=== PATIENT | female | born 1950 | race Caucasian/White ===

== ENCOUNTER 2023-03-07 11:35 | Emergency (ER) | payer MEDICARE, OTHER, SELFPAY ==
[2023-03-07] VITALS (14 sets, daily range): BP systolic 135–174; BP diastolic 80–93; PULSE 59–70; RESP 7–19; TEMP 36.5–36.7; O2SAT 95–98; BMI 26.2
--- NOTE | 2023-03-07 12:04 | ECG_ITS ---
[facility] Test Date: 2023-03-07 Pat Name: NIRAV RAI Department: Room: - Gender: Female Direct Support Professional: : 1950 Requested By: 1030 Order Number: [id number] Reading MD: BUFFY FLORES Measurements Intervals [place] Rate: 62 P: 26 MA: 212 QRS: -41 QRSD: 146 T: 102 QT: 482 QTc: 487 Interpretive Statements 1100 Sinus rhythm 2231 First degree AV block 2550 Left bundle branch block 7200 Abnormal left axis deviation 9150 abnormal ECG No previous ECG available for comparison Electronically Signed On 03-08-2023 6:53:47 EDT by BUFFY FLORES
--- NOTE | 2023-03-07 12:56 | ED.CHESTPAI1 ---
HPI - Chest Pain General Chief Complaint: Chest Pain Stated Complaint: CHEST PAIN Time Seen by Provider: 03/07/23 11:51 Source: patient Mode of arrival: ambulance History of Present Illness HPI narrative: 72-year-old female presents for chest pain which is now resolved. She got a call from the school counselor where her granddaughter goes to school and she was told that her granddaughter was feeling suicidal. She developed pain in the left side of her chest which resolved on its own and she has not had recurrence. It lasted a few minutes. She feels perfectly normal now, has no symptoms. This happened just before coming into the emergency department, about an hour before arrival. Related Data Allergies Allergy/AdvReac Type Severity Reaction Status Date / Time No Known Drug Allergies Allergy Verified 03/07/23 11:38 Review of Systems ROS Narrative A ten point review of systems is negative except as noted above. Exam Narrative Exam Narrative: Nurses note and vital signs reviewed and patient is not hypoxic. General: The patient appears well and in no apparent distress. Patient is resting comfortably on cart. Skin: Warm, dry, no pallor noted. There is no rash noted. Head: Normocephalic, atraumatic Eye: Normal conjunctiva, no drainage Ears, Nose, Mouth, and Throat: oral mucosa is moist. Nares patent. Cardiovascular: Regular Rate and Rhythm Respiratory: Patient is in no distress, no accessory muscle use, lungs are clear to auscultation, no wheezing, rales or rhonchi Back: non-tender GI: soft and nontender Musculoskeletal: The patient has no evidence of calf tenderness, no pitting edema, symmetrical pulses noted bilaterally Neurological: A&O, normal speech Psychiatric: Cooperative Constitutional Vital Signs, click to edit/add: Last Vital Signs Temp 97.7 F 03/07/23 11:38 Pulse 59 L 03/07/23 12:30 Resp 11 L 03/07/23 12:30 BP 141/88 03/07/23 12:30 Pulse Ox 97 03/07/23 12:30 O2 Del Method Room Air 03/07/23 11:38 Course Vital Signs Vital signs: Vital Signs Blood Pressure 140/80 03/07/23 11:31 Temperature 97.7 F 03/07/23 11:38 Pulse Rate 59 L 03/07/23 12:30 Respiratory Rate 11 L 03/07/23 12:30 Blood Pressure 141/88 03/07/23 12:30 Pulse Oximetry 97 03/07/23 12:30 Oxygen Delivery Method Room Air 03/07/23 11:38 MDM - Chest Pain MDM Narrative Medical decision making narrative: the patient had pain in her chest for a few minutes and resolved. It has not recurred and she was observed here. EKG on my interpretation shows no acute findings. She is asymptomatic and my clinical impressions that her symptom was due to anxiety. I've no clinical suspicion of acute coronary syndrome. Treatment diagnosis and follow-up were discussed with the patient. Differential Diagnosis Differential diagnosis: Likely stable angina, atypical chest pain, st elevation myocardial infarction and other (anxiety) ECG Data Attestation: I personally reviewed and interpreted this ECG as follows: (EKG on my interpretation shows sinus rhythm with first-degree block and no acute changes. Left bundle branch block also present and her heart rate is 62.) Discharge Plan Discharge Chief Complaint: Chest Pain Clinical Impression: Chest pain Patient Disposition: Home, Self-Care Time of Disposition Decision: 12:54 Condition: Good Mode of Transportation: Private Vehicle Instructions: Chest Pain (ED), Panic Attack (ED) Stand Alone Forms: Portal Instructions Referrals: Physician,Non-Staff, MD [Primary Care Provider] - 1 week
[2023-03-07 20:58] LABS: Glucometer 90 mg/dL (74-106)
== END 2023-03-07 13:32 | disposition home or self-care (01) ==
PROVIDERS: Emergency Provider Emergency Medicine
DX: R07.9 Chest pain, unspecified (principal)
CPT/HCPCS: 36415; 93005; 99283

== ENCOUNTER 2023-03-07 20:57 | Emergency (ER) | payer MEDICARE, OTHER, SELFPAY ==
[2023-03-07] VITALS (39 sets, daily range): BP systolic 117–176; BP diastolic 68–105; PULSE 60–90; RESP 6–22; TEMP 37.1; O2SAT 96–100; BMI 24.6
--- NOTE | 2023-03-07 21:04 | XR_ITS ---
[address] [address] Patient Name: NIRAV RAI MRN: [id number] date: 1950 Sex: F Assigned Patient Location: ER Current Patient Location: ER Accession/Order Number: [id number] Exam Date: 03/07/2023 21:23 Report Date: 03/07/2023 21:48 At the request of: MARLA KEEN Procedure: XR chest 1V Exam: Radiographs: XR chest 1V Reason for exam: chest pain Comparison: Chest x-ray dated 08/16/2022 XR/XR chest 1V IMPRESSION: Unremarkable chest x-ray. Electronically authenticated by: AYLIN REYNOLDS Date: 03/07/2023 21:48
--- NOTE | 2023-03-07 21:06 | ED.CHESTPAI1 ---
Documented by User: Jose Ventura MD 03/09/23 06:55 HPI - Chest Pain General Chief Complaint: Chest Pain Stated Complaint: CHEST PAIN Time Seen by Provider: 03/07/23 21:02 Source: patient Mode of arrival: Wheelchair History of Present Illness HPI narrative: patient is poor historian. Past history of CAD. complains of left neck and shoulder pain. Feels short of breath. No nausea or abdominal pain patient has been in the ER most of the day with her grand daughter who is being treated for depression and arrangements in place for in patient psychiatric treatment. Patient was seen earlier today for chest pain and was discharged back to the room with her granddaughter. Now presents with above pain. additional history obtained later from patient. Past cardiac stents x 3. Last stent placed 01/2023. MD complaint: Reports chest pain Related Data Home Medications Medication Instructions Recorded Confirmed aspirin 81 mg tablet,delayed 81 mg PO DAILY 03/07/23 03/07/23 release atorvastatin 80 mg tablet 80 mg PO DAILY 03/07/23 03/07/23 citalopram 20 mg tablet 20 mg PO DAILY 03/07/23 03/07/23 clopidogrel 75 mg tablet 75 mg PO DAILY 03/07/23 03/07/23 folic acid 1 mg tablet 1 mg PO DAILY 03/07/23 03/07/23 lacosamide 100 mg tablet 100 mg PO Q12H 03/07/23 03/07/23 levetiracetam 500 mg tablet 500 mg PO Q12H 03/07/23 03/07/23 levothyroxine 125 mcg tablet 125 mcg PO DAILY 03/07/23 03/07/23 losartan 50 mg tablet 50 mg PO DAILY 03/07/23 03/07/23 mecobalamin (vitamin B12) 1,000 1,000 mcg PO DAILY 03/07/23 03/07/23 mcg disintegrating tablet,sublingual metoprolol succinate 25 mg 25 mg PO DAILY 03/07/23 03/07/23 tablet,extended release 24 hr nitroglycerin 0.4 mg sublingual 0.4 mg sublingual Q5M PRN chest 03/07/23 03/07/23 tablet pain pantoprazole 40 mg tablet,delayed 40 mg PO DAILY 03/07/23 03/07/23 release Allergies Allergy/AdvReac Type Severity Reaction Status Date / Time No Known Drug Allergies Allergy Verified 03/07/23 11:38 Review of Systems ROS Status of ROS 10 or more systems reviewed and unremarkable except as noted in history and below [facility] Medical History (Updated 03/08/23 @ 15:21 by Ella Caputo) Myocardial infarction ?I21.9 - Acute myocardial infarction, unspecified (ICD-10) Exam Constitutional Vital Signs, click to edit/add: Last Vital Signs Temp 97.7 F 03/08/23 19:18 Pulse 70 03/08/23 19:18 Resp 16 03/08/23 19:18 BP 148/78 H 03/08/23 19:18 Pulse Ox 98 03/08/23 19:18 O2 Del Method Room Air 03/08/23 18:10 Common normals: no apparent distress (mild distress), oriented x3 and alert Eye Common normals: EOMs intact bilaterally and conjunctivae normal Respiratory Common normals: normal respiratory effort, no retractions, no use of accessory muscles and clear to auscultation bilaterally Cardio Common normals: regular rate, regular rhythm, S1 normal heart sound and S2 normal heart sound GI Common normals: Normal to inspection, nondistended, normoactive bowel sounds present, soft to palpation and non-tender Extremity Common normals: normal to inspection Neuro Common normals: oriented x3, CN's II-XII intact bilaterally, moves all extremities, no focal motor deficits and no sensory deficits noted Psych Appearance: grossly normal Course Vital Signs Vital signs: Vital Signs Blood Pressure 171/94 H 03/07/23 20:55 Temperature 97.7 F 03/08/23 19:18 Pulse Rate 70 03/08/23 19:18 Respiratory Rate 16 03/08/23 19:18 Blood Pressure 148/78 H 03/08/23 19:18 Pulse Oximetry 98 03/08/23 19:18 Oxygen Delivery Method Room Air 03/08/23 18:10 MDM - Chest Pain MDM Narrative Medical decision making narrative: significant past history for CAD. Presents complaining of chest pain with radiation to her left neck and shoulder. Associated with dyspnea. d-dimer elevated but CTA neg for PE. EKG with old LBBB. cxray clear. Troponin elevated >500. Patient informed of the findings and need for transfer to cardiology. ordered placed for heparin Lab Data Labs: Lab Results 03/07/23 03/08/23 03/08/23 Range/Units 21:00 02:10 02:30 WBC 10.1 (4.0-11.0) 10^3/uL RBC 4.13 L (4.20-5.40) 10^6/uL Hgb 11.3 L (12.0-16.0) g/dL Hct 37.5 (36.0-48.0) % MCV 90.8 (81.0-99.0) fL MCH 27.4 (26.7-34.0) pg MCHC 30.1 (29.9-35.2) g/dL RDW 16.4 H (11.0-15.0) % Plt Count 304 (150-450) 10^3/uL MPV 10.1 (9.5-13.5) fL Neut % (Auto) 64.1 (43.0-75.0) % Lymph % (Auto) 26.4 (20.5-60.0) % [place] % (Auto) 6.9 (1.7-12.0) % Eos % (Auto) 1.8 (0.9-7.0) % Baso % (Auto) 0.6 (0.2-2.0) % Neut # (Auto) 6.5 (1.4-6.5) 10^3/uL Lymph # (Auto) 2.7 (1.2-3.8) 10^3/uL [place] # (Auto) 0.7 (0.3-0.8) 10^3/uL Eos # (Auto) 0.2 (0.0-0.7) 10^3/uL Baso # (Auto) 0.1 (0.0-0.1) 10^3/uL Abs Immat Gran (auto) 0.02 (0.00-0.03) 10^3/uL Imm/Tot Granulo (auto) 0.2 (0.0-0.5) % APTT 25.0 (22.3-36.2) sec PTT (Heparin Absorb) (39.5-54.2) sec D-Dimer 1.17 H* (<=0.59) mg/L FEU Sodium 139 (136-145) mmol/L Potassium 3.6 (3.5-5.1) mmol/L Chloride 105 (98-107) mmol/L Carbon Dioxide 24.5 (21.0-32.0) mmol/L Anion Gap 13.1 BUN 17.0 (7.0-18.0) mg/dL Creatinine 0.97 (0.55-1.02) mg/dL Est GFR ( Amer) >60 (>=60) Est GFR (Non-Af Amer) 56 L (>=60) BUN/Creatinine Ratio 17.5 Glucose 94 (74-106) mg/dL Calcium 8.7 (8.5-10.1) mg/dL Total Creatine Kinase 48 (26-192) U/L CK-MB (CK-2) <0.50 (<=3.60) ng/mL Troponin I High Sens 568.4 H* 493.3 H* (4.0-51.3) pg/mL 03/08/23 03/08/23 03/08/23 Range/Units 06:04 12:06 15:33 WBC (4.0-11.0) 10^3/uL RBC (4.20-5.40) 10^6/uL Hgb (12.0-16.0) g/dL Hct (36.0-48.0) % MCV (81.0-99.0) fL MCH (26.7-34.0) pg MCHC (29.9-35.2) g/dL RDW (11.0-15.0) % Plt Count (150-450) 10^3/uL MPV (9.5-13.5) fL Neut % (Auto) (43.0-75.0) % Lymph % (Auto) (20.5-60.0) % [place] % (Auto) (1.7-12.0) % Eos % (Auto) (0.9-7.0) % Baso % (Auto) (0.2-2.0) % Neut # (Auto) (1.4-6.5) 10^3/uL Lymph # (Auto) (1.2-3.8) 10^3/uL [place] # (Auto) (0.3-0.8) 10^3/uL Eos # (Auto) (0.0-0.7) 10^3/uL Baso # (Auto) (0.0-0.1) 10^3/uL Abs Immat Gran (auto) (0.00-0.03) 10^3/uL Imm/Tot Granulo (auto) (0.0-0.5) % APTT (22.3-36.2) sec PTT (Heparin Absorb) 40.7 30.5 L* (39.5-54.2) sec D-Dimer (<=0.59) mg/L FEU Sodium (136-145) mmol/L Potassium (3.5-5.1) mmol/L Chloride (98-107) mmol/L Carbon Dioxide (21.0-32.0) mmol/L Anion Gap BUN (7.0-18.0) mg/dL Creatinine (0.55-1.02) mg/dL Est GFR ( Amer) (>=60) Est GFR (Non-Af Amer) (>=60) BUN/Creatinine Ratio Glucose (74-106) mg/dL Calcium (8.5-10.1) mg/dL Total Creatine Kinase (26-192) U/L CK-MB (CK-2) (<=3.60) ng/mL Troponin I High Sens 475.9 H* (4.0-51.3) pg/mL 03/08/23 Range/Units 17:53 WBC (4.0-11.0) 10^3/uL RBC (4.20-5.40) 10^6/uL Hgb (12.0-16.0) g/dL Hct (36.0-48.0) % MCV (81.0-99.0) fL MCH (26.7-34.0) pg MCHC (29.9-35.2) g/dL RDW (11.0-15.0) % Plt Count (150-450) 10^3/uL MPV (9.5-13.5) fL Neut % (Auto) (43.0-75.0) % Lymph % (Auto) (20.5-60.0) % [place] % (Auto) (1.7-12.0) % Eos % (Auto) (0.9-7.0) % Baso % (Auto) (0.2-2.0) % Neut # (Auto) (1.4-6.5) 10^3/uL Lymph # (Auto) (1.2-3.8) 10^3/uL [place] # (Auto) (0.3-0.8) 10^3/uL Eos # (Auto) (0.0-0.7) 10^3/uL Baso # (Auto) (0.0-0.1) 10^3/uL Abs Immat Gran (auto) (0.00-0.03) 10^3/uL Imm/Tot Granulo (auto) (0.0-0.5) % APTT (22.3-36.2) sec PTT (Heparin Absorb) 78.1 H* (39.5-54.2) sec D-Dimer (<=0.59) mg/L FEU Sodium (136-145) mmol/L Potassium (3.5-5.1) mmol/L Chloride (98-107) mmol/L Carbon Dioxide (21.0-32.0) mmol/L Anion Gap BUN (7.0-18.0) mg/dL Creatinine (0.55-1.02) mg/dL Est GFR ( Amer) (>=60) Est GFR (Non-Af Amer) (>=60) BUN/Creatinine Ratio Glucose (74-106) mg/dL Calcium (8.5-10.1) mg/dL Total Creatine Kinase (26-192) U/L CK-MB (CK-2) (<=3.60) ng/mL Troponin I High Sens (4.0-51.3) pg/mL Discharge Plan Discharge Chief Complaint: Chest Pain Clinical Impression: Non-ST elevation LA (NSTEMI) Patient Disposition: [facility] Time of Disposition Decision: 17:36 Discharge Location: [facility] Condition: Serious Mode of Transportation: EMS Discharge Date/Time: 03/08/23 19:41 Documented by User: Edmundo Whitney MD 03/08/23 17:36 HPI - Chest Pain General Chief Complaint: Chest Pain Stated Complaint: CHEST PAIN Time Seen by Provider: 03/07/23 21:02 Related Data Home Medications Medication Instructions Recorded Confirmed aspirin 81 mg tablet,delayed 81 mg PO DAILY 03/07/23 03/07/23 release atorvastatin 80 mg tablet 80 mg PO DAILY 03/07/23 03/07/23 citalopram 20 mg tablet 20 mg PO DAILY 03/07/23 03/07/23 clopidogrel 75 mg tablet 75 mg PO DAILY 03/07/23 03/07/23 folic acid 1 mg tablet 1 mg PO DAILY 03/07/23 03/07/23 lacosamide 100 mg tablet 100 mg PO Q12H 03/07/23 03/07/23 levetiracetam 500 mg tablet 500 mg PO Q12H 03/07/23 03/07/23 levothyroxine 125 mcg tablet 125 mcg PO DAILY 03/07/23 03/07/23 losartan 50 mg tablet 50 mg PO DAILY 03/07/23 03/07/23 mecobalamin (vitamin B12) 1,000 1,000 mcg PO DAILY 03/07/23 03/07/23 mcg disintegrating tablet,sublingual metoprolol succinate 25 mg 25 mg PO DAILY 03/07/23 03/07/23 tablet,extended release 24 hr nitroglycerin 0.4 mg sublingual 0.4 mg sublingual Q5M PRN chest 03/07/23 03/07/23 tablet pain pantoprazole 40 mg tablet,delayed 40 mg PO DAILY 03/07/23 03/07/23 release Allergies Allergy/AdvReac Type Severity Reaction Status Date / Time No Known Drug Allergies Allergy Verified 03/07/23 11:38 [facility] Medical History (Updated 03/08/23 @ 15:21 by Ella Caputo) Myocardial infarction ?I21.9 - Acute myocardial infarction, unspecified (ICD-10) Exam Constitutional Vital Signs, click to edit/add: Last Vital Signs Temp 97.7 F 03/08/23 19:18 Pulse 70 03/08/23 19:18 Resp 16 03/08/23 19:18 BP 148/78 H 03/08/23 19:18 Pulse Ox 98 03/08/23 19:18 O2 Del Method Room Air 03/08/23 18:10 Course Vital Signs Vital signs: Vital Signs Blood Pressure 171/94 H 03/07/23 20:55 Temperature 97.7 F 03/08/23 19:18 Pulse Rate 70 03/08/23 19:18 Respiratory Rate 16 03/08/23 19:18 Blood Pressure 148/78 H 03/08/23 19:18 Pulse Oximetry 98 03/08/23 19:18 Oxygen Delivery Method Room Air 03/08/23 18:10 MDM - Chest Pain MDM Narrative Medical decision making narrative: significant past history for CAD. Presents complaining of chest pain with radiation to her left neck and shoulder. Associated with dyspnea. d-dimer elevated but CTA neg for PE. EKG with old LBBB. cxray clear. Troponin elevated >500. Patient informed of the findings and need for transfer to cardiology. ordered placed for heparin Patient was under my care from 7:00 AM. Multiple calls were made to her preferred hospital but they have no beds and did not have any indication as to when that should be available. She initially refused to go out to any other other institution but it approximate 5:00 PM she said that she would be transferred to another cardiology center if necessary . serial troponins have stabilized. sHe developed severe abdominal pain in the right mid to right upper quadrant in the middle of the afternoon and CT was done of the abdomen. There is no acute findings noted. She has been on heparin.I spoke with the hospitalist in [place] he's accepted the case. I explained these findings and recommendations to the patient multiple times and one of her family members as well. Lab Data Labs: Lab Results 03/07/23 03/08/23 03/08/23 Range/Units 21:00 02:10 02:30 WBC 10.1 (4.0-11.0) 10^3/uL RBC 4.13 L (4.20-5.40) 10^6/uL Hgb 11.3 L (12.0-16.0) g/dL Hct 37.5 (36.0-48.0) % MCV 90.8 (81.0-99.0) fL MCH 27.4 (26.7-34.0) pg MCHC 30.1 (29.9-35.2) g/dL RDW 16.4 H (11.0-15.0) % Plt Count 304 (150-450) 10^3/uL MPV 10.1 (9.5-13.5) fL Neut % (Auto) 64.1 (43.0-75.0) % Lymph % (Auto) 26.4 (20.5-60.0) % [place] % (Auto) 6.9 (1.7-12.0) % Eos % (Auto) 1.8 (0.9-7.0) % Baso % (Auto) 0.6 (0.2-2.0) % Neut # (Auto) 6.5 (1.4-6.5) 10^3/uL Lymph # (Auto) 2.7 (1.2-3.8) 10^3/uL [place] # (Auto) 0.7 (0.3-0.8) 10^3/uL Eos # (Auto) 0.2 (0.0-0.7) 10^3/uL Baso # (Auto) 0.1 (0.0-0.1) 10^3/uL Abs Immat Gran (auto) 0.02 (0.00-0.03) 10^3/uL Imm/Tot Granulo (auto) 0.2 (0.0-0.5) % APTT 25.0 (22.3-36.2) sec PTT (Heparin Absorb) (39.5-54.2) sec D-Dimer 1.17 H* (<=0.59) mg/L FEU Sodium 139 (136-145) mmol/L Potassium 3.6 (3.5-5.1) mmol/L Chloride 105 (98-107) mmol/L Carbon Dioxide 24.5 (21.0-32.0) mmol/L Anion Gap 13.1 BUN 17.0 (7.0-18.0) mg/dL Creatinine 0.97 (0.55-1.02) mg/dL Est GFR ( Amer) >60 (>=60) Est GFR (Non-Af Amer) 56 L (>=60) BUN/Creatinine Ratio 17.5 Glucose 94 (74-106) mg/dL Calcium 8.7 (8.5-10.1) mg/dL Total Creatine Kinase 48 (26-192) U/L CK-MB (CK-2) <0.50 (<=3.60) ng/mL Troponin I High Sens 568.4 H* 493.3 H* (4.0-51.3) pg/mL 03/08/23 03/08/23 03/08/23 Range/Units 06:04 12:06 15:33 WBC (4.0-11.0) 10^3/uL RBC (4.20-5.40) 10^6/uL Hgb (12.0-16.0) g/dL Hct (36.0-48.0) % MCV (81.0-99.0) fL MCH (26.7-34.0) pg MCHC (29.9-35.2) g/dL RDW (11.0-15.0) % Plt Count (150-450) 10^3/uL MPV (9.5-13.5) fL Neut % (Auto) (43.0-75.0) % Lymph % (Auto) (20.5-60.0) % [place] % (Auto) (1.7-12.0) % Eos % (Auto) (0.9-7.0) % Baso % (Auto) (0.2-2.0) % Neut # (Auto) (1.4-6.5) 10^3/uL Lymph # (Auto) (1.2-3.8) 10^3/uL [place] # (Auto) (0.3-0.8) 10^3/uL Eos # (Auto) (0.0-0.7) 10^3/uL Baso # (Auto) (0.0-0.1) 10^3/uL Abs Immat Gran (auto) (0.00-0.03) 10^3/uL Imm/Tot Granulo (auto) (0.0-0.5) % APTT (22.3-36.2) sec PTT (Heparin Absorb) 40.7 30.5 L* (39.5-54.2) sec D-Dimer (<=0.59) mg/L FEU Sodium (136-145) mmol/L Potassium (3.5-5.1) mmol/L Chloride (98-107) mmol/L Carbon Dioxide (21.0-32.0) mmol/L Anion Gap BUN (7.0-18.0) mg/dL Creatinine (0.55-1.02) mg/dL Est GFR ( Amer) (>=60) Est GFR (Non-Af Amer) (>=60) BUN/Creatinine Ratio Glucose (74-106) mg/dL Calcium (8.5-10.1) mg/dL Total Creatine Kinase (26-192) U/L CK-MB (CK-2) (<=3.60) ng/mL Troponin I High Sens 475.9 H* (4.0-51.3) pg/mL 03/08/23 Range/Units 17:53 WBC (4.0-11.0) 10^3/uL RBC (4.20-5.40) 10^6/uL Hgb (12.0-16.0) g/dL Hct (36.0-48.0) % MCV (81.0-99.0) fL MCH (26.7-34.0) pg MCHC (29.9-35.2) g/dL RDW (11.0-15.0) % Plt Count (150-450) 10^3/uL MPV (9.5-13.5) fL Neut % (Auto) (43.0-75.0) % Lymph % (Auto) (20.5-60.0) % [place] % (Auto) (1.7-12.0) % Eos % (Auto) (0.9-7.0) % Baso % (Auto) (0.2-2.0) % Neut # (Auto) (1.4-6.5) 10^3/uL Lymph # (Auto) (1.2-3.8) 10^3/uL [place] # (Auto) (0.3-0.8) 10^3/uL Eos # (Auto) (0.0-0.7) 10^3/uL Baso # (Auto) (0.0-0.1) 10^3/uL Abs Immat Gran (auto) (0.00-0.03) 10^3/uL Imm/Tot Granulo (auto) (0.0-0.5) % APTT (22.3-36.2) sec PTT (Heparin Absorb) 78.1 H* (39.5-54.2) sec D-Dimer (<=0.59) mg/L FEU Sodium (136-145) mmol/L Potassium (3.5-5.1) mmol/L Chloride (98-107) mmol/L Carbon Dioxide (21.0-32.0) mmol/L Anion Gap BUN (7.0-18.0) mg/dL Creatinine (0.55-1.02) mg/dL Est GFR ( Amer) (>=60) Est GFR (Non-Af Amer) (>=60) BUN/Creatinine Ratio Glucose (74-106) mg/dL Calcium (8.5-10.1) mg/dL Total Creatine Kinase (26-192) U/L CK-MB (CK-2) (<=3.60) ng/mL Troponin I High Sens (4.0-51.3) pg/mL Discharge Plan Discharge Chief Complaint: Chest Pain Clinical Impression: Non-ST elevation LA (NSTEMI) Patient Disposition: [facility] Time of Disposition Decision: 17:36 Discharge Location: [facility] Condition: Serious Mode of Transportation: EMS Discharge Date/Time: 03/08/23 19:41
[2023-03-07] MEDS: NITROGLYCERIN 0.4 MG BOTTLE SL (21:10)
[2023-03-07 21:11] LABS: Basophils Absolute Auto 0.1 10^3/uL (0.0-0.1); Basophils Percent Auto 0.6 % (0.2-2.0); Eosinophils Absolute Auto 0.2 10^3/uL (0.0-0.7); Eosinophils Percent Auto 1.8 % (0.9-7.0); Hematocrit 37.5 % (36.0-48.0); Hemoglobin 11.3 g/dL (12.0-16.0); Immature Granulocytes Abs Auto 0.02 10^3/uL (0.00-0.03); Immature Granulocytes Pct Auto 0.2 % (0.0-0.5); Lymphocytes Absolute Auto 2.7 10^3/uL (1.2-3.8); Lymphocytes Percent Auto 26.4 % (20.5-60.0); Mean Corpuscular HGB Conc 30.1 g/dL (29.9-35.2); Mean Corpuscular Hemoglobin 27.4 pg (26.7-34.0); Mean Corpuscular Volume 90.8 fL (81.0-99.0); Mean Platelet Volume 10.1 fL (9.5-13.5); Monocytes Absolute Auto 0.7 10^3/uL (0.3-0.8); Monocytes Percent Auto 6.9 % (1.7-12.0); Neutrophils Absolute Auto 6.5 10^3/uL (1.4-6.5); Neutrophils Percent Auto 64.1 % (43.0-75.0); Platelet Count 304 10^3/uL (150-450); Red Blood Count 4.13 10^6/uL (4.20-5.40); Red Cell Distribution Width 16.4 % (11.0-15.0); White Blood Count 10.1 10^3/uL (4.0-11.0)
--- NOTE | 2023-03-07 21:15 | PC.NURSE ---
pt was here earlier today because patient was sitting with her granddaughter who is waiting on a room to a psych facility. patient developed left sided chest pain and was taken to a room.patient had chest pain an hour prior to bringing her granddaughter in and it had resolved but then came back when sitting with patient. pt had an ekg done and after calming down chest pain had resolved. no blood work was done earlier. patient was sitting in room with granddaughter and the constant observer at bedside alerted nurses that the patient was feeling unwell and dizzy. patient was taken back to a room. when back in room patient is c/o dizziness and feeling hot and sweaty. patient states that she has pain to the left side of her neck that goes down into her left shoulder that started 20 minutes prior to being brought back to a room. patient denies chest pain at this time. patient states she does feel sob. pt placed on 2 liters nasal cannula for comfort. 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
[2023-03-07 21:32] LABS: Anion Gap 13.1; BUN Creatinine Ratio 17.5; Calcium 8.7 mg/dL (8.5-10.1); Carbon Dioxide 24.5 mmol/L (21.0-32.0); Chloride 105 mmol/L (98-107); Estimated GFR (African America >60 (>=60); Estimated GFR (Non-African Ame 56 (>=60); Glucose 94 mg/dL (74-106); Potassium 3.6 mmol/L (3.5-5.1); Sodium 139 mmol/L (136-145)
[2023-03-07 21:33] LABS: D Dimer 1.17 mg/L FEU (<=0.59)
--- NOTE | 2023-03-07 21:34 | CT_ITS ---
[address] [address] Patient Name: NIRAV RAI MRN: [id number] date: 1950 Sex: F Assigned Patient Location: ER Current Patient Location: Accession/Order Number: [id number] Exam Date: 03/07/2023 21:48 Report Date: 03/07/2023 22:19 At the request of: MARLA KEEN Procedure: CT angio chest EXAM: CT pulmonary angiogram of the chest using 100 mL of IV iodinated contrast. 3-D imaging was performed. Dose reduction technique used: Automated exposure control and/or adjustment of the mA and/or kV according to patient size and/or use of iterative reconstruction technique. REASON FOR EXAM: elevated d dimer COMPARISON: None FINDINGS: No pulmonary emboli. No aortic dissection. No pneumothorax. No acute airspace opacities. No pleural effusion. No acute fractures. No concerning pulmonary nodules. No definite lymphadenopathy in the chest. Mucus plugging scattered in the lower lungs bilaterally. Coronary atherosclerotic calcifications. Cardiomegaly. Remainder unremarkable. CT/CT angio chest IMPRESSION: 1. No pulmonary embolism. 2. Mucus plugging scattered in the lower lungs bilaterally. Electronically authenticated by: AYLIN REYNOLDS Date: 03/07/2023 22:19
[2023-03-07 21:35] LABS: Troponin I High Sensitivity 568.4 pg/mL (4.0-51.3)
[2023-03-07] MEDS: MORPHINE SULFATE 4 MG/ML VIAL IV (21:35)
--- NOTE | 2023-03-07 23:03 | ECG_ITS ---
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
[2023-03-07] MEDS: HEPARIN SODIUM (PORCINE) 5,000 UNIT/ML VIAL 2500 UNIT IV (23:32)
[2023-03-07] MEDS: HEPARIN SODIUM,PORCINE/D5W 25,000 UNIT/500 ML IV.SOLN 15.12 UNIT IV (23:33)
[2023-03-08] VITALS (166 sets, daily range): BP systolic 120–191; BP diastolic 59–129; PULSE 56–97; RESP 8–22; TEMP 36.4–36.5; O2SAT 95–100
[2023-03-08] MEDS: ASPIRIN 81 MG TABLET.DR 324 MG PO (00:33)
[2023-03-08 03:02] LABS: Creatine Kinase 48 U/L (26-192); Creatine Kinase MB <0.50 ng/mL (<=3.60); Troponin I High Sensitivity 493.3 pg/mL (4.0-51.3)
[2023-03-08 06:34] LABS: PTT Heparin Monitor 40.7 sec (39.5-54.2)
[2023-03-08 12:28] LABS: PTT Heparin Monitor 30.5 sec (39.5-54.2)
[2023-03-08] MEDS: HEPARIN SODIUM (PORCINE) 5,000 UNIT/ML VIAL 2500 UNIT IV (12:46)
--- NOTE | 2023-03-08 13:58 | ECG_ITS ---
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
--- NOTE | 2023-03-08 13:59 | PC.NURSE ---
New EKG complete after pt c/o pain to right side that travels to mid ABD and into back, Pt describes this as sharp and hurts to breath. notified and at pt bedside at this time.
--- NOTE | 2023-03-08 14:04 | CT_ITS ---
[address] [address] Patient Name: NIRAV RAI MRN: [id number] date: 1950 Sex: F Assigned Patient Location: ER Current Patient Location: ER Accession/Order Number: [id number] Exam Date: 03/08/2023 14:50 Report Date: 03/08/2023 15:51 At the request of: JARED HENDERSON Procedure: CT abdomen pelvis wo con EXAM: CT abdomen pelvis wo con HISTORY: abdominal pain COMPARISON: 08/16/2022 TECHNIQUE: Axial CT imaging was performed through the abdomen and pelvis without intravenous contrast. Multiplanar reformats were performed. Dose reduction techniques were achieved by using automated exposure control and/or adjustment of mA and/or kV according to patient size and/or use of iterative reconstruction technique. FINDINGS: Lung bases: Lung bases are clear. No pleural effusion. GI upper: Small to moderate hiatal hernia. Liver: Normal size and contour. Gallbladder: Persistent distended gallbladder. No significant abnormality. No cholelithiasis. Biliary system: No intra or extrahepatic biliary ductal dilatation. Spleen: Normal size. Pancreas: Unremarkable. Adrenal glands: Normal adrenal glands. Kidneys/ureters: Contrast is seen within the collecting system and urinary bladder. Normal contours. No hydronephrosis. No nephrolithiasis or ureterolithiasis. There is a 2 cm left renal cyst. Vessels: No aneurysm. Lymph Nodes: No lymphadenopathy. Small bowel: No wall thickening or dilatation. Colon: No wall thickening. There is distended descending and transverse colon, similar in size compared to the prior study from 3 08/16/2022. Stool is seen in the ascending colon, sigmoid and rectum. Finding can be due to colon hypomotility. No definite transitional point is seen. Appendix: Appendix is identified with normal appearance. Peritoneal cavity: No free fluid or pneumoperitoneum. Lower : Unremarkable. Bones: No acute bony abnormality. Soft tissues: No acute finding. Additional findings: None. CT/CT abdomen pelvis wo con IMPRESSION: distended descending and transverse colon, similar in size compared to the prior study from 3 08/16/2022. Stool is seen in the ascending colon, sigmoid and rectum. Finding can be due to colon hypomotility. No definite transitional point is seen. Small to moderate hiatal hernia. Electronically authenticated by: MARIELLA RAMIRES Date: 03/08/2023 15:51
[2023-03-08] MEDS: HYDROMORPHONE HCL 2 MG/ML VIAL 1 MG IV (14:15)
[2023-03-08] MEDS: ONDANSETRON PF 4 MG/2 ML VIAL IV (14:40)
[2023-03-08 16:00] LABS: Troponin I High Sensitivity 475.9 pg/mL (4.0-51.3)
--- NOTE | 2023-03-08 18:10 | PC.NURSE ---
nc off per DR order, pt currentlt on ra at 98% with continuous O2 monitoring
[2023-03-08 18:23] LABS: PTT Heparin Monitor 78.1 sec (39.5-54.2)
== END 2023-03-08 19:41 | disposition short-term general hospital (02) ==
PROVIDERS: Internal Medicine; Emergency Provider Emergency Medicine Emergency Medical Services
DX: I21.4 Non-ST elevation (NSTEMI) myocardial infarction (principal); R07.9 Chest pain, unspecified; I25.10 Atherosclerotic heart disease of native coronary artery without angina pectoris; Z95.5 Presence of coronary angioplasty implant and graft; Z79.82 Long term (current) use of aspirin; Z79.899 Other long term (current) drug therapy; Z79.890 Hormone replacement therapy
CPT/HCPCS: 36415; 36416; 71045; 71275; 74176; 80048; 82550; 82553; 82948; 84484; 85025; 85378; 85610; 85730; 93005; 96374; 96375; 96376; 99283; 99285; J1170; Q9967

== ENCOUNTER 2023-11-09 22:31 | Emergency (ER) | payer MEDICARE, OTHER, SELFPAY ==
[2023-11-09 22:38] VITALS: BP 157/102; PULSE 88; TEMP 35.9; O2SAT 93; BMI 26.6
--- NOTE | 2023-11-09 22:51 | ED.ABDPAIN1 ---
HPI - Abdominal Pain General Chief Complaint: Abdominal Pain Stated Complaint: ABD PAIN Time Seen by Provider: 11/09/23 22:43 Source: patient Mode of arrival: Wheelchair Limitations: no limitations History of Present Illness HPI narrative: past history of CAD and gallstones. States she has not had a gallstone attack in years. Ate harjeet martinze and now presents complaining of RUQ gallstone pain associated with nausea and vomiting. No fever, chest pain or dyspnea Related Data Home Medications ?Medication ?Instructions ?Recorded ?Confirmed aspirin 81 mg tablet,delayed 81 mg PO DAILY 03/07/23 03/07/23 release atorvastatin 80 mg tablet 80 mg PO DAILY 03/07/23 03/07/23 citalopram 20 mg tablet 20 mg PO DAILY 03/07/23 03/07/23 clopidogrel 75 mg tablet 75 mg PO DAILY 03/07/23 03/07/23 folic acid 1 mg tablet 1 mg PO DAILY 03/07/23 03/07/23 lacosamide 100 mg tablet 100 mg PO Q12H 03/07/23 03/07/23 levetiracetam 500 mg tablet 500 mg PO Q12H 03/07/23 03/07/23 levothyroxine 125 mcg tablet 125 mcg PO DAILY 03/07/23 03/07/23 losartan 50 mg tablet 50 mg PO DAILY 03/07/23 03/07/23 mecobalamin (vitamin B12) 1,000 1,000 mcg PO DAILY 03/07/23 03/07/23 mcg disintegrating tablet,sublingual metoprolol succinate 25 mg 25 mg PO DAILY 03/07/23 03/07/23 tablet,extended release 24 hr nitroglycerin 0.4 mg sublingual 0.4 mg sublingual Q5M PRN chest 03/07/23 03/07/23 tablet pain pantoprazole 40 mg tablet,delayed 40 mg PO DAILY 03/07/23 03/07/23 release Allergies Allergy/AdvReac Type Severity Reaction Status Date / Time No Known Drug Allergies Allergy Verified 11/09/23 22:37 Review of Systems ROS Status of ROS 10 or more systems reviewed and unremarkable except as noted in history and below [facility] Medical History (Updated 11/10/23 @ 02:41 by Jose Ventura MD) Myocardial infarction ?I21.9 - Acute myocardial infarction, unspecified (ICD-10) Exam Constitutional Vital Signs, click to edit/add: Last Vital Signs Temp 96.6 F L 11/09/23 22:38 Pulse 78 11/10/23 02:28 Resp 18 11/10/23 02:28 BP 170/84 H 11/10/23 02:28 Pulse Ox 97 11/10/23 02:28 O2 Del Method Room Air 11/10/23 02:28 Common normals: no apparent distress, average body habitus, oriented x3, no limitations, healthy appearing, alert and well nourished HENIN Common normals: normocephalic and head/scalp atraumatic Eye Common normals: EOMs intact bilaterally and conjunctivae normal Respiratory Common normals: normal respiratory effort, no retractions, no use of accessory muscles and clear to auscultation bilaterally Cardio Common normals: regular rate, regular rhythm, S1 normal heart sound and S2 normal heart sound GI Common normals: Normal to inspection, nondistended, normoactive bowel sounds present and soft to palpation Other: RUQ tenderness, RLQ and LLQ tenderness Extremity Common normals: normal to inspection and full ROM Neuro Common normals: oriented x3, CN's II-XII intact bilaterally, moves all extremities and no focal motor deficits Psych Appearance: grossly normal Course Vital Signs Vital signs: Vital Signs Temperature 96.6 F L 11/09/23 22:38 Pulse Rate 88 11/09/23 22:38 Respiratory Rate 18 11/09/23 22:38 Blood Pressure 157/102 H 11/09/23 22:38 Pulse Oximetry 93 L 11/09/23 22:38 Oxygen Delivery Method Room Air 11/09/23 22:38 Temperature 96.6 F L 11/09/23 22:38 Pulse Rate 78 11/10/23 02:28 Respiratory Rate 18 11/10/23 02:28 Blood Pressure 170/84 H 11/10/23 02:28 Pulse Oximetry 97 11/10/23 02:28 Oxygen Delivery Method Room Air 11/10/23 02:28 MDM - Abdominal Pain MDM Narrative Medical decision making narrative: patient presents complaining of gallbladder pain that started after eating pizza. her abdominal exam is nonspecific as she has pain RUQ, RLQ and LLQ. Labs reveal elevated troponin in patient with known CAD and stent placement. Review of records demonstrate very similar elevated troponin with past visits. Has cardiomyopathy with EF 35%. Heart cath at [facility] 03/18 with stenosis of branch of LAD 40-50%. stent looks good. No other significant coronary stenosis. EKG with LBBB and unchanged from prior EKG. Patient denies chest pain biliary labs neg. CT abdomen without acute findings. Repeat troponin pending. repeat troponin returns and has decreased but is still elevated. 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 Patient is adamant she does not want to go to [facility] and that she has to go home. she is aware of my concerns in regards to her elevated troponin and known heart disease but insist on leaving. she is signing out AMA Lab Data Labs: Lab Results 11/09/23 11/10/23 Range/Units 23:01 01:45 WBC 15.2 H (4.0-11.0) 10^3/uL RBC 4.37 (4.20-5.40) 10^6/uL Hgb 12.8 (12.0-16.0) g/dL Hct 40.6 (36.0-48.0) % MCV 92.9 (81.0-99.0) fL MCH 29.3 (26.7-34.0) pg MCHC 31.5 (29.9-35.2) g/dL RDW 15.4 H (11.0-15.0) % Plt Count 292 (150-450) 10^3/uL MPV 10.2 (9.5-13.5) fL Neut % (Auto) 74.8 (43.0-75.0) % Lymph % (Auto) 18.4 L (20.5-60.0) % [place] % (Auto) 5.0 (1.7-12.0) % Eos % (Auto) 1.2 (0.9-7.0) % Baso % (Auto) 0.3 (0.2-2.0) % Neut # (Auto) 11.4 H (1.4-6.5) 10^3/uL Lymph # (Auto) 2.8 (1.2-3.8) 10^3/uL [place] # (Auto) 0.8 (0.3-0.8) 10^3/uL Eos # (Auto) 0.2 (0.0-0.7) 10^3/uL Baso # (Auto) 0.0 (0.0-0.1) 10^3/uL Abs Immat Gran (auto) 0.04 H (0.00-0.03) 10^3/uL Imm/Tot Granulo (auto) 0.3 (0.0-0.5) % Sodium 139 (136-145) mmol/L Potassium 4.3 (3.5-5.1) mmol/L Chloride 107 (98-107) mmol/L Carbon Dioxide 21.6 (21.0-32.0) mmol/L Anion Gap 14.7 BUN 19.0 H (7.0-18.0) mg/dL Creatinine 0.94 (0.55-1.02) mg/dL Est GFR ( Amer) >60 (>=60) Est GFR (Non-Af Amer) 58 L (>=60) BUN/Creatinine Ratio 20.2 Glucose 133 H (74-106) mg/dL Lactate 2.0 (0.4-2.0) mmol/L Calcium 9.4 (8.5-10.1) mg/dL Total Bilirubin 0.9 (0.2-1.0) mg/dL AST 10 L (15-37) U/L ALT 10 L (14-59) U/L Alkaline Phosphatase 125 H (46-116) U/L Troponin I High Sens 509.8 H* 468.8 H* (4.0-51.3) pg/mL Total Protein 7.8 (6.4-8.2) g/dL Albumin 3.4 (3.4-5.0) g/dL Globulin 4.4 g/dL Albumin/Globulin Ratio 0.8 Lipase 26.0 (16.0-77.0) U/L Discharge Plan Discharge Stand Alone Forms: Portal Instructions Chief Complaint: Abdominal Pain Clinical Impression: Abdominal pain, Elevated troponin Patient Disposition: Left Against Medical Advice Prescriptions / Home Meds: No Action aspirin 81 mg tablet,delayed release (DR/EC) 81 mg PO DAILY atorvastatin 80 mg tablet 80 mg PO DAILY citalopram 20 mg tablet 20 mg PO DAILY clopidogrel 75 mg tablet 75 mg PO DAILY folic acid 1 mg tablet 1 mg PO DAILY lacosamide 100 mg tablet 100 mg PO Q12H levetiracetam 500 mg tablet 500 mg PO Q12H levothyroxine 125 mcg tablet 125 mcg PO DAILY losartan 50 mg tablet 50 mg PO DAILY metoprolol succinate 25 mg tablet extended release 24 hr 25 mg PO DAILY nitroglycerin 0.4 mg tablet, sublingual 0.4 mg sublingual Q5M PRN (Reason: chest pain) pantoprazole 40 mg tablet,delayed release (DR/EC) 40 mg PO DAILY mecobalamin (vitamin B12) 1,000 mcg tablet,disintegrating 1,000 mcg PO DAILY Print Language: Ukrainian Referrals: Physician,Non-Staff, MD [Primary Care Provider] - 1 week
[2023-11-09 22:52] VITALS: PULSE 72
--- NOTE | 2023-11-09 22:52 | ECG_ITS ---
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
--- NOTE | 2023-11-09 22:53 | XR_ITS ---
The [address] [address] Patient Name: NIRAV RAI MRN: [id number] date: 1950 Sex: F Assigned Patient Location: ER Current Patient Location: ER Accession/Order Number: [id number] Exam Date: 11/09/2023 23:40 Report Date: 11/10/2023 00:50 At the request of: MARLA KEEN Procedure: XR chest 1V XR chest 1V 11/09/2023 10:40 PM CDT: History: abdominal pain Comparison: 03/07/2023 Technique: 1 view chest Findings: The cardiomediastinal silhouette is normal. The lungs are clear without infiltrate, effusion, or pneumothorax. The bones are intact. XR/XR chest 1V Impression: No acute cardiopulmonary process. Electronically authenticated by: KARLOS IBARRA Date: 11/10/2023 00:50
--- NOTE | 2023-11-09 22:54 | CT_ITS ---
The [address] [address] Patient Name: NIRAV RAI MRN: [id number] date: 1950 Sex: F Assigned Patient Location: ER Current Patient Location: Accession/Order Number: [id number] Exam Date: 11/09/2023 23:40 Report Date: 11/10/2023 00:53 At the request of: MARLA KEEN Procedure: CT abdomen pelvis w con EXAM: CT abdomen pelvis w con HISTORY: RUQ pain . Right upper quadrant abdominal pain COMPARISON: None. TECHNIQUE: IV contrast enhanced CT imaging of the abdomen and pelvis. This CT exam was performed using one or more of the following dose reduction techniques: Automated exposure control, adjustment of the mA and/or KV according to patient size, or use of iterative reconstruction technique. Unless otherwise stated, incidental findings do not require dedicated follow-up imaging. FINDINGS: The lung bases are clear. The heart size is normal. The liver, spleen, pancreas, adrenal glands, and gallbladder demonstrate no acute abnormality. There is a left upper pole renal cyst. The right kidney is normal. The bowel is unobstructed. The appendix is normal. There is no free fluid or free air within the abdomen or pelvis. The bladder is distended and within normal limits. The bones are intact without acute abnormality. CT/CT abdomen pelvis w con IMPRESSION: No acute abnormality. Electronically authenticated by: KARLOS IBARRA Date: 11/10/2023 00:53
[2023-11-09 23:09] LABS: Basophils Percent Auto 0.3 % (0.2-2.0); Eosinophils Absolute Auto 0.2 10^3/uL (0.0-0.7); Eosinophils Percent Auto 1.2 % (0.9-7.0); Hematocrit 40.6 % (36.0-48.0); Hemoglobin 12.8 g/dL (12.0-16.0); Immature Granulocytes Abs Auto 0.04 10^3/uL (0.00-0.03); Immature Granulocytes Pct Auto 0.3 % (0.0-0.5); Lymphocytes Absolute Auto 2.8 10^3/uL (1.2-3.8); Lymphocytes Percent Auto 18.4 % (20.5-60.0); Mean Corpuscular HGB Conc 31.5 g/dL (29.9-35.2); Mean Corpuscular Hemoglobin 29.3 pg (26.7-34.0); Mean Corpuscular Volume 92.9 fL (81.0-99.0); Mean Platelet Volume 10.2 fL (9.5-13.5); Monocytes Absolute Auto 0.8 10^3/uL (0.3-0.8); Neutrophils Absolute Auto 11.4 10^3/uL (1.4-6.5); Neutrophils Percent Auto 74.8 % (43.0-75.0); Platelet Count 292 10^3/uL (150-450); Red Blood Count 4.37 10^6/uL (4.20-5.40); Red Cell Distribution Width 15.4 % (11.0-15.0); White Blood Count 15.2 10^3/uL (4.0-11.0)
[2023-11-09] MEDS: 0.9 % SODIUM CHLORIDE 1,000 ML 999 ML IV (23:09)
[2023-11-09] MEDS: FENTANYL CITRATE/PF 100 MCG/2 ML VIAL 50 MCG IV (23:11)
[2023-11-09] MEDS: ONDANSETRON PF 4 MG/2 ML VIAL IV (23:11)
[2023-11-09 23:24] LABS: Alanine Aminotransferase 10 U/L (14-59); Albumin Globulin Ratio 0.8; Albumin Level 3.4 g/dL (3.4-5.0); Alkaline Phosphatase 125 U/L (46-116); Anion Gap 14.7; Aspartate Amino Transferase 10 U/L (15-37); BUN Creatinine Ratio 20.2; Bilirubin Total 0.9 mg/dL (0.2-1.0); Calcium 9.4 mg/dL (8.5-10.1); Carbon Dioxide 21.6 mmol/L (21.0-32.0); Chloride 107 mmol/L (98-107); Estimated GFR (African America >60 (>=60); Estimated GFR (Non-African Ame 58 (>=60); Globulin 4.4 g/dL; Glucose 133 mg/dL (74-106); Potassium 4.3 mmol/L (3.5-5.1); Sodium 139 mmol/L (136-145); Total Protein 7.8 g/dL (6.4-8.2)
[2023-11-09 23:30] LABS: Troponin I High Sensitivity 509.8 pg/mL (4.0-51.3)
[2023-11-10 00:02] VITALS: BP 157/82; PULSE 69; O2SAT 97
[2023-11-10 00:18] VITALS: BP 152/84; PULSE 64; O2SAT 98
[2023-11-10 02:09] LABS: Troponin I High Sensitivity 468.8 pg/mL (4.0-51.3)
[2023-11-10 02:28] VITALS: BP 170/84; PULSE 78; O2SAT 97
== END 2023-11-10 02:59 | disposition left against medical advice (07) ==
PROVIDERS: Emergency Provider Internal Medicine
DX: R10.9 Unspecified abdominal pain (principal); R79.89 Other specified abnormal findings of blood chemistry; I25.10 Atherosclerotic heart disease of native coronary artery without angina pectoris
CPT/HCPCS: 36415; 71045; 74177; 80053; 83605; 83690; 84484; 85025; 93005; 96361; 96374; 96375; 99285; J2405; J3010; Q9967

== ENCOUNTER 2024-10-06 19:00 | Emergency (ER) | payer MEDICARE, OTHER, SELFPAY ==
[2024-10-06] VITALS (31 sets, daily range): BP systolic 122–158; BP diastolic 59–79; PULSE 73–91; TEMP 37–38.4; O2SAT 92–97; BMI 26.6
--- NOTE | 2024-10-06 19:28 | ECG_ITS ---
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 Measurements Intervals [place] Rate: 89 P: 37 UT: 208 QRS: -27 QRSD: 154 T: 121 QT: 422 QTc: 468 Interpretive Statements 1100 Sinus rhythm 2330 Nonspecific intraventricular conduction block 7202 Moderate left axis deviation 9150 abnormal ECG Compared to ECG 11/09/2023 22:52:57 Left-axis deviation now present Ventricular premature complex(es) no longer present Electronically Signed On 10-07-2024 6:32:33 EDT by RAVI SAMS M.D.
--- NOTE | 2024-10-06 19:42 | ED.GENADUL1 ---
HPI HPI - General Adult General Chief complaint: Altered Mental Status Stated complaint: seizures Time Seen by Provider: 10/06/24 19:35 Source: other Source information: EMS Mode of arrival: ambulance Limitations: no limitations History of Present Illness HPI narrative: patient presents from home. States she has been ill all day. Nursing states she was confused when triaged. Patient AxOx3 when I came in to examine her. She complains of abdominal pain. Denies chest pain or dyspnea. States she did have nausea and vomiting but no diarrhea Related Data Home Medications ?Medication ?Instructions ?Recorded ?Confirmed aspirin 81 mg tablet,delayed 81 mg PO DAILY 03/07/23 10/06/24 release clopidogrel 75 mg tablet 75 mg PO DAILY 03/07/23 10/06/24 lacosamide 100 mg tablet 100 mg PO Q12H 03/07/23 10/06/24 levetiracetam 500 mg tablet 500 mg PO Q12H 03/07/23 10/06/24 levothyroxine 125 mcg tablet 125 mcg PO DAILY 03/07/23 10/06/24 losartan 50 mg tablet 50 mg PO DAILY 03/07/23 10/06/24 metoprolol succinate 25 mg 25 mg PO DAILY 03/07/23 10/06/24 tablet,extended release 24 hr pantoprazole 40 mg tablet,delayed 40 mg PO DAILY 03/07/23 10/06/24 release Allergies Allergy/AdvReac Type Severity Reaction Status Date / Time No Known Drug Allergies Allergy Verified 10/06/24 19:11 Opioid HPI Opioid Management Most Recent Opioid Data: Last Pain Scale 8 11/09/23, 23:55 Review of Systems ROS Status of ROS 10 or more systems reviewed and unremarkable except as noted in history and below [facility] Medical History (Updated 10/07/24 @ 06:53 by Jose Ventura MD) Hypothyroid ?E03.9 - Hypothyroidism, unspecified (ICD-10) Epilepsy ?G40.909 - Epilepsy, unspecified, not intractable, without status epilepticus (ICD-10) Pulmonary hypertension ?I27.20 - Pulmonary hypertension, unspecified (ICD-10) Myocardial infarction ?I21.9 - Acute myocardial infarction, unspecified (ICD-10) Surgical History (Updated 10/06/24 @ 23:38 by Kassi Madera) H/O heart artery stent ?Z95.5 - Presence of coronary angioplasty implant and graft (ICD-10) Exam Constitutional Vital Signs, click to edit/add: Last Vital Signs Temp 98.6 F 10/06/24 23:35 Pulse 59 L 10/07/24 05:40 Resp 16 10/07/24 05:40 BP 115/64 10/07/24 05:30 Pulse Ox 92 L 10/06/24 22:10 O2 Del Method Room Air 10/06/24 19:32 Common normals: no apparent distress, oriented x3, alert and well nourished HENMT Common normals: normocephalic and head/scalp atraumatic Eye Common normals: EOMs intact bilaterally and conjunctivae normal Respiratory Common normals: normal respiratory effort, no retractions, no use of accessory muscles and clear to auscultation bilaterally Cardio Common normals: regular rate, regular rhythm, S1 normal heart sound and S2 normal heart sound GI Other: RUQ tenderness. no guarding Extremity Common normals: normal to inspection and full ROM Neuro Common normals: oriented x3, CN's II-XII intact bilaterally, moves all extremities and no focal motor deficits Psych Appearance: grossly normal Course Vital Signs Vital signs: Vital Signs Temperature 101.2 F H 10/06/24 19:08 Pulse Rate 89 10/06/24 19:08 Respiratory Rate 18 10/06/24 19:08 Blood Pressure 151/78 H 10/06/24 19:08 Pulse Oximetry 95 10/06/24 19:08 Oxygen Delivery Method Room Air 10/06/24 19:08 Temperature 98.6 F 10/06/24 23:35 Pulse Rate 59 L 10/07/24 05:40 Respiratory Rate 16 10/07/24 05:40 Blood Pressure 115/64 10/07/24 05:30 Pulse Oximetry 92 L 10/06/24 22:10 Oxygen Delivery Method Room Air 10/06/24 19:32 Medical Decision Making MDM Narrative Medical decision making narrative: patient with fever and choledocholithiasis, stones in distal common bile duct and markedly distended gallbladder. she has elevated LFTs. Discussed with [facility] and patient accepted for admission. Medicated with Rocephin and flagyl. Her chest xray is clear. Lab Data Labs: Lab Results 10/06/24 10/06/24 10/06/24 Range/Units 19:10 19:25 22:10 WBC 11.6 H (4.0-11.0) 10^3/uL RBC 4.01 L (4.20-5.40) 10^6/uL Hgb 12.2 (12.0-16.0) g/dL Hct 37.7 (36.0-48.0) % MCV 94.0 (81.0-99.0) fL MCH 30.4 (26.7-34.0) pg MCHC 32.4 (29.9-35.2) g/dL RDW 14.6 (11.0-15.0) % Plt Count 201 (150-450) 10^3/uL MPV 10.2 (9.5-13.5) fL Seg Neuts % (Manual) 94.0 H (43.0-75.0) Lymphocytes % (Manual) 5.0 L (20.5-60.0) % Monocytes % (Manual) 1.0 L (1.7-12.0) % Eosinophils % (Manual) 0.0 L (0.9-7.0) % Basophils % (Manual) 0.0 L (0.2-2.0) % Neutrophils # (Manual) 10.90 H (1.4-6.5) 10^3/uL Lymphocytes # (Manual) 0.58 L (1.20-3.80) 10^3/uL Monocytes # (Manual) 0.11 L (0.30-0.80) 10^3/uL Eosinophils # (Manual) 0.00 (0.00-0.70) 10^3/uL Basophils # (Manual) 0.00 (0.00-0.10) 10^3/uL Sodium 140 (136-145) mmol/L Potassium 3.2 L (3.5-5.1) mmol/L Chloride 106 (98-107) mmol/L Carbon Dioxide 19.2 L (21.0-32.0) mmol/L Anion Gap 18.0 BUN 22.0 H (7.0-18.0) mg/dL Creatinine 1.12 H (0.55-1.02) mg/dL Est GFR ( Amer) 58 L (>=60 mL/min/1.73m^2) Est GFR (Non-Af Amer) 48 L (>=60 mL/min/1.73m^2) BUN/Creatinine Ratio 19.6 Glucose 128 H (74-106) mg/dL Lactate 2.6 H* 0.9 (0.4-2.0) mmol/L Calcium 9.1 (8.5-10.1) mg/dL Total Bilirubin 2.7 H (0.2-1.0) mg/dL AST 524 H* (15-37) U/L ALT 311 H (14-59) U/L Alkaline Phosphatase 480 H (46-116) U/L Troponin I High Sens 273.0 H* (4.0-51.3) pg/mL Total Protein 7.2 (6.4-8.2) g/dL Albumin 3.1 L (3.4-5.0) g/dL Globulin 4.1 g/dL Albumin/Globulin Ratio 0.8 Urine Color Yellow (YELLOW) Urine Clarity Clear (CLEAR) Urine pH 6.0 (5.0-9.0) Ur Specific [place] 1.015 (1.005-1.025) Urine Protein Negative (NEG/TRACE) mg/dL Urine Glucose (UA) Negative (NEGATIVE) mg/dL Urine Ketones Negative (NEGATIVE) mg/dL Urine Occult Blood Trace-i (NEGATIVE) Urine Nitrite Negative (NEGATIVE) Urine Bilirubin Negative (NEGATIVE) Urine Urobilinogen 2.0 A (0.2-1.0) EU/dL Ur Leukocyte Esterase Negative (NEGATIVE) Urine RBC 0-2 (0-2) #/HPF Urine WBC 0-2 A (NONE SEEN) #/HPF Ur Squamous Epith Cells Rare (NONE/RARE) #/LPF Urine Crystals None seen (None Seen) #/HPF Urine Bacteria Trace A (NONE SEEN) #/HPF Urine Casts None seen (NONE SEEN) #/LPF Urine Mucus None seen (NONE SEEN) Ur Culture Indicated? No Critical Care Time Critical Care Time Total Critical Care Time: 45 Discharge Plan Discharge Chief Complaint: Altered Mental Status Clinical Impression: Choledocholithiasis with acute cholecystitis Patient Disposition: [facility]
[2024-10-06 19:57] LABS: Hematocrit 37.7 % (36.0-48.0); Hemoglobin 12.2 g/dL (12.0-16.0); Mean Corpuscular HGB Conc 32.4 g/dL (29.9-35.2); Mean Corpuscular Hemoglobin 30.4 pg (26.7-34.0); Mean Platelet Volume 10.2 fL (9.5-13.5); Platelet Count 201 10^3/uL (150-450); Red Blood Count 4.01 10^6/uL (4.20-5.40); Red Cell Distribution Width 14.6 % (11.0-15.0); White Blood Count 11.6 10^3/uL (4.0-11.0)
[2024-10-06] MEDS: SODIUM CHLORIDE 524 ML IV (20:01)
[2024-10-06] MEDS: CEFTRIAXONE 1,000 MG in 0.9 % SODIUM CHLORIDE 50 ML 100 MG IV (20:05)
[2024-10-06] MEDS: ONDANSETRON PF 4 MG/2 ML VIAL IV (20:12)
[2024-10-06 20:18] LABS: Bilirubin Urine NEGATIVE (NEGATIVE); Blood Urine TRACE-I (NEGATIVE); Clarity Urine CLEAR (CLEAR); Color Urine YELLOW (YELLOW); Glucose Urine UA NEGATIVE (NEGATIVE); Ketones Urine NEGATIVE (NEGATIVE); Leukocyte Esterase Urine NEGATIVE (NEGATIVE); Nitrite Urine NEGATIVE (NEGATIVE); Protein Urine NEGATIVE (NEG/TRACE); Specific Gravity Urine 1.015 (1.005-1.025)
[2024-10-06 20:21] LABS: Alanine Aminotransferase 311 U/L (14-59); Albumin Globulin Ratio 0.8; Albumin Level 3.1 g/dL (3.4-5.0); Alkaline Phosphatase 480 U/L (46-116); BUN Creatinine Ratio 19.6; Bilirubin Total 2.7 mg/dL (0.2-1.0); Calcium 9.1 mg/dL (8.5-10.1); Carbon Dioxide 19.2 mmol/L (21.0-32.0); Chloride 106 mmol/L (98-107); Estimated GFR (African America 58 (>=60 mL/min/1.73m^2); Estimated GFR (Non-African Ame 48 (>=60 mL/min/1.73m^2); Globulin 4.1 g/dL; Glucose 128 mg/dL (74-106); Potassium 3.2 mmol/L (3.5-5.1); Sodium 140 mmol/L (136-145); Total Protein 7.2 g/dL (6.4-8.2)
[2024-10-06 20:27] LABS: Aspartate Amino Transferase 524 U/L (15-37); Lactate/Lactic Acid 2.6 mmol/L (0.4-2.0)
[2024-10-06 20:43] LABS: Lymphocytes Absolute Manual 0.58 10^3/uL (1.20-3.80); Monocytes Absolute Manual 0.11 10^3/uL (0.30-0.80)
[2024-10-06 20:49] LABS: Bacteria Urine TRACE #/HPF (NONE SEEN); Cast Seen? NONE SEEN #/LPF (NONE SEEN); Crystals Seen? None Seen #/HPF (None Seen); Mucus Urine NONE SEEN (NONE SEEN); RBC Urine 0-2 #/HPF (0-2); Squamous Epithelial Cell Urine RARE #/LPF (NONE/RARE); Urine Culture Indicated NO; WBC Urine 0-2 #/HPF (NONE SEEN)
[2024-10-06] MEDS: KETOROLAC TROMETHAMINE 30 MG/ML VIAL IVP (21:16)
[2024-10-06] MEDS: METRONIDAZOLE/SODIUM CHLORIDE 500 MG/100 ML PREMIX 100 MG IV (23:07)
[2024-10-06 23:10] LABS: Lactate/Lactic Acid 0.9 mmol/L (0.4-2.0)
[2024-10-07] VITALS (54 sets, daily range): BP systolic 114–137; BP diastolic 57–68; PULSE 56–79
[2024-10-07 06:22] LABS: A. calcoaceticus-baumannii Cpx NOT DETECTED (NOT DETECTE); Bacteroides fragilis NOT DETECTED (NOT DETECTE); Candida albicans NOT DETECTED (NOT DETECTE); Candida auris NOT DETECTED (NOT DETECTE); Candida glabrata NOT DETECTED (NOT DETECTE); Candida krusei NOT DETECTED (NOT DETECTE); Candida parapsilosis NOT DETECTED (NOT DETECTE); Candida tropicalis NOT DETECTED (NOT DETECTE); Cryptococcus neoformans/gattii NOT DETECTED (NOT DETECTE); Enterobacter cloacae complex NOT DETECTED (NOT DETECTE); Enterococcus faecalis NOT DETECTED (NOT DETECTE); Enterococcus faecium NOT DETECTED (NOT DETECTE); Haemophilus influenzae NOT DETECTED (NOT DETECTE); Klebsiella aerogenes NOT DETECTED (NOT DETECTE); Klebsiella pneumoniae group NOT DETECTED (NOT DETECTE); Listeria monocytogenes NOT DETECTED (NOT DETECTE); Neisseria meningitidis NOT DETECTED (NOT DETECTE); Proteus spp. NOT DETECTED (NOT DETECTE); Pseudomonas aeruginosa NOT DETECTED (NOT DETECTE); Salmonella spp. NOT DETECTED (NOT DETECTE); Serratia marcescens NOT DETECTED (NOT DETECTE); Staphylococcus epidermidis NOT DETECTED (NOT DETECTE); Staphylococcus lugdunensis NOT DETECTED (NOT DETECTE); Staphylococcus spp. NOT DETECTED (NOT DETECTE); Stenotrophomonas maltophilia NOT DETECTED (NOT DETECTE); Streptococcus agalactiae NOT DETECTED (NOT DETECTE); Streptococcus pneumoniae NOT DETECTED (NOT DETECTE); Streptococcus pyogenes NOT DETECTED (NOT DETECTE); Streptococcus spp. NOT DETECTED (NOT DETECTE)
[2024-10-07] MEDS: METRONIDAZOLE/SODIUM CHLORIDE 500 MG/100 ML PREMIX 100 MG IV (07:18)
[2024-10-07 07:53] LABS: CTX-M NOT DETECTED (NOT DETECTE); IMP NOT DETECTED (NOT DETECTE); KPC NOT DETECTED (NOT DETECTE); NDM NOT DETECTED (NOT DETECTE); OXA-48-like NOT DETECTED (NOT DETECTE); Source Blood; VIM NOT DETECTED (NOT DETECTE); mcr-1 NOT DETECTED (NOT DETECTE)
[2024-10-07 07:55] LABS: Enterobacterales DETECTED (NOT DETECTE)
== END 2024-10-07 10:05 | disposition short-term general hospital (02) ==
PROVIDERS: Emergency Provider Internal Medicine
DX: K80.42 Calculus of bile duct with acute cholecystitis without obstruction (principal); Z95.5 Presence of coronary angioplasty implant and graft; R50.9 Fever, unspecified
CPT/HCPCS: 36415; 51702; 71045; 74177; 80053; 81001; 83605; 84484; 85007; 85027; 87040; 87077; 87150; 87186; 93005; 96361; 96365; 96366; 96367; 96375; 99285; J0696; J1836; J1885; J2405; Q9967